=== PATIENT | female | born 1960 | race American Indian/Alaskan Native ===

== ENCOUNTER 2018-08-19 06:46 | Day surgery (SDC) | payer OTHER ==
[2018-06-02 11:21] VITALS: BMI 39.4
[2018-08-19] MEDS ORDERED: Lactated Ringer's 1,000 ML IV ONE (07:30)
--- NOTE | 2018-08-19 07:38 | CP.SDSHP ---
Same Day Surgery H & P - History Proposed Procedure: Lumbar transforaminal epidural steroid injection Pre-Op Diagnosis: Lumbar radiculopathy - Previous Medical/Surgical History Cardiac: Hypertension Pain: 8.Very Severe - Allergies Allergies: Allergies No Known Allergies Allergy (Verified 08/12/17 14:09) - Physical Exam Vital Signs: Vital Signs 08/19/18 08/19/18 07:00 07:30 Temperature 98.4 F Pulse Rate 68 68 Respiratory 20 Rate Blood Pressure 137/77 O2 Sat by Pulse 96 Oximetry Neuro: WNL Heart: WNL Lungs: WNL GI: WNL - Impression Impression: Lumbar radiculopathy Pt. Evaluated Today:Candidate for Anesthesia & Procedure: Yes Short Stay Discharge - Short Stay Discharge Admitting Diagnosis/Reason for Visit: M48.00 Disposition: HOME/ ROUTINE Referrals: Heather Cage MD [Primary Care Provider] -
[2018-08-19] MEDS ORDERED: Midazolam 2 MG/2 ML VIAL ONE (07:39)
[2018-08-19] MEDS ORDERED: Lidocaine 1% Inj (20ml) IJ ONE (08:04)
[2018-08-19] MEDS ORDERED: Iohexol 300 10 ML IJ ONE (08:06)
[2018-08-19] MEDS ORDERED: Bupivacaine HCl 0.25% PF (30 ml) Inj IJ ONE (08:10)
[2018-08-19] MEDS ORDERED: HYDROmorphone 0.5 mg/0.5 ml ISec IVP PRN (08:21)
[2018-08-19] MEDS ORDERED: HYDROmorphone 0.5 mg/0.5 ml ISec ONE (08:23)
[2018-08-19 10:34] VITALS: BP 120/73; PULSE 6; RESP 15; TEMP 97.8; O2SAT 100
--- NOTE | 2018-08-19 12:38 | RAD ---
Date of service: 08/19/2018 PROCEDURE: Fluoroscopy up to 1 hr. HISTORY: PAIN MANAGEMENT COMPARISON: None TECHNIQUE: Standard protocol for this study/examination. FINDINGS: Total fluoroscopic time (continuous mode) utilized during the procedure 32.4 seconds. Total exam DLP: 11.17 (mGy). IMPRESSION: Submitted images from the current procedure: 2.0. Less than 1 hr fluoroscopic assistance provided during performance of the procedure.
--- NOTE | 2018-08-19 16:46 | OP ---
PROCEDURE DATE: 08/19/2018 PREOPERATIVE DIAGNOSIS: Lumbar radiculopathy. POSTOPERATIVE DIAGNOSIS: Lumbar radiculopathy. PROCEDURE: Bilateral L4 to L5 transforaminal epidural steroid injection. ANESTHESIOLOGIST: Francisco Malik MD SURGEON: Gege Nieto MD TYPE OF ANESTHESIA: Monitored anesthesia care. COMPLICATIONS: None. SPECIMEN: None. DESCRIPTION OF PROCEDURE: Procedure is as follows: After we had a discussion of the procedure with the patient including its risks, benefits, alternatives, outcome data, possibility of no effect or increased pain, the patient consented to the procedure. She denies any recent infection, bleeding tendencies, or being on anticoagulant. A decision was then made to proceed to the OR. The patient was placed on the fluoroscopy table in a prone position with two pillows underneath her abdomen. The back was prepped and draped in the usual sterile fashion. A sterile technique was adhered to during the entire procedure. The L4 to L5 intravertebral disc was first visualized on the anteroposterior view. The procedure is to be performed at the level of the L4 pedicle. The fluoroscopy was turned towards the right at approximately 25 degrees to maximize the visualization of the right L4 pedicle. The skin overlying the 6 o'clock position over the pedicle was then infiltrated with 1% lidocaine using a 25-gauge needle. Subsequently, a 22-gauge 5-inch spinal needle was then incrementally advanced under fluoroscopic guidance until tip of the needle walked into the intervertebral foramen. After two attempts to access the intervertebral foramen, the needle placement finally confirmed by injecting approximately 0.5 mL of Isovue contrast which showed appropriate epidural spread. At this point, approximately 3 mL of 0.25% Marcaine and Depo-Medrol mixture was injected. The needle was then removed and the same exact procedure was performed on the contralateral left side using the same medications and techniques. At the end of the case, the patient's back was cleaned and dry bandage was applied. The patient was then transferred to the recovery area in good conditions without any signs of [employer] toxicity or any neurological deficit. She will be followed up in our office in approximately two to four weeks. Frieda Nieto MD [facility] # [id number]
== END 2018-08-19 11:45 | disposition home or self-care (01) ==
LOC: H.OPSURG 06:46
PROVIDERS: ATTEND Anesthesiology
DX: M54.16 Radiculopathy, lumbar region (principal); I10 Essential (primary) hypertension
CPT/HCPCS: 64483; J1040; J1170; J2250; J2405; J3010; J7120; Q9967